=== PATIENT | male | born 2000 | race Two or more races ===

== ENCOUNTER 2024-12-30 02:08 | Emergency (ER) | payer OTHER ==
[~2024-12-30] VITALS: Ht 177.8 cm; Wt 78.0 kg
[2024-12-30] MEDS ORDERED: DIPHTH,PERTUSS(ACELL),TET VAC 0.5 ML SYRINGE IM ONE ×2 (03:00→03:05)
[2024-12-30] MEDS ORDERED: CEFTRIAXONE SODIUM 1,000 MG VIAL IM ONE (03:00)
[2024-12-30] MEDS ORDERED: CEFTRIAXONE SODIUM 1,000 MG VIAL ONE (03:05)
[2024-12-30] MEDS ORDERED: DUI500 PO (03:28)
== END 2024-12-30 04:01 | disposition home or self-care (01) ==
LOC: ER 02:08
DX: S81.822A Laceration with foreign body, left lower leg, initial encounter (principal); W01.0XXA Fall on same level from slipping, tripping and stumbling without subsequent striking against object, initial encounter; Y93.89 Activity, other specified; Y92.89 Other specified places as the place of occurrence of the external cause
CPT/HCPCS: 12001; 90471; 90714; J1670

== ENCOUNTER 2025-01-10 13:22 | Emergency (ER) | payer OTHER ==
[~2025-01-10] VITALS: Ht 180.3 cm; Wt 78.0 kg
[~2025-01-10 13:22] MED LIST: DUI500 PO
== END 2025-01-10 18:46 | disposition home or self-care (01) ==
LOC: ER 13:33
DX: Z48.02 Encounter for removal of sutures (principal)